=== PATIENT | female | born 1960 | race Caucasian/White ===

== ENCOUNTER → 2016-04-25 | Outpatient (CLI) | payer MEDICARE, MEDICAID | END | disposition home or self-care (01) | LOC: LAB.O 10:31 | PROVIDERS: ATTEND Family Medicine | DX: R53.83 Other fatigue (principal) ==

== ENCOUNTER → 2019-03-15 | Outpatient (CLI) | payer MEDICARE, MEDICAID | LOC: LAB.O 12:48 | PROVIDERS: ATTEND Nurse Practitioner Psychiatric/Mental Health | DX: F41.0 Panic disorder [episodic paroxysmal anxiety] (principal); F33.2 Major depressive disorder, recurrent severe without psychotic features; Z79.899 Other long term (current) drug therapy ==